=== PATIENT | female | born 1995 | race Two or more races ===

== ENCOUNTER 2019-02-10 19:07 | Emergency (ER) | payer MEDICAID ==
[2019-02-10 21:45] VITALS: BP 141/72
== END 2019-02-10 22:52 | disposition home or self-care (01) ==
LOC: ER 19:07
DX: S13.9XXA Sprain of joints and ligaments of unspecified parts of neck, initial encounter (principal); S43.401A Unspecified sprain of right shoulder joint, initial encounter; R51 Headache; V43.52XA Car driver injured in collision with other type car in traffic accident, initial encounter; Y93.89 Activity, other specified; Y92.488 Other paved roadways as the place of occurrence of the external cause; Y99.8 Other external cause status
CPT/HCPCS: 70450; 72125; 73200

== ENCOUNTER 2020-01-11 11:42 | Emergency (ER) | payer MEDICAID ==
[~2020-01-11] VITALS: Ht 162.6 cm; Wt 115.2 kg
[2020-01-11 12:39] VITALS: BP 129/74
[2020-01-11] MEDS ORDERED: METHOCARBAMOL 500 MG TAB PO ONE (14:30)
[2020-01-11] MEDS ORDERED: KETOROLAC TROMETH 60MG/2ML VIAL IM ONE (14:30)
== END 2020-01-11 15:17 | disposition home or self-care (01) ==
LOC: ER 11:42
DX: S91.312A Laceration without foreign body, left foot, initial encounter (principal); R51 Headache; M54.5 Low back pain; M54.6 Pain in thoracic spine; M54.2 Cervicalgia; R07.2 Precordial pain; V89.2XXA Person injured in unspecified motor-vehicle accident, traffic, initial encounter; Y93.I9 Activity, other involving external motion; Y92.89 Other specified places as the place of occurrence of the external cause; Y99.8 Other external cause status
CPT/HCPCS: 70450; 72070; 72100; 96372; 99284; J1885

== ENCOUNTER 2022-04-17 17:37 | Emergency (ER) | payer MEDICAID ==
[~2022-04-17] VITALS: Ht 162.6 cm; Wt 99.7 kg
[2022-04-17] MEDS ORDERED: OXYCODONE W/ ACETAMINOPHEN 5/325MG TABLET PO ONE (23:15)
[2022-04-17] MEDS ORDERED: TETANUS-DIPTH-ACEL PERTUSSIS 0.5ML SYR Tdap IM ONE (23:15)
[2022-04-17] MEDS ORDERED: BACITRACIN TOP OINT 1 UD PKG TOP ONE (23:15)
[2022-04-17] MEDS ORDERED: CEPHALEXIN 250 MG CAP PO ONE (23:15)
[2022-04-17] MEDS ORDERED: PERCOT PO (23:45)
[2022-04-17] MEDS ORDERED: CEPH-322 PO (23:45)
[2022-04-18 00:48] VITALS: BP 115/74
== END 2022-04-18 00:52 | disposition home or self-care (01) ==
LOC: ER 17:37
DX: T24.202A Burn of second degree of unspecified site of left lower limb, except ankle and foot, initial encounter (principal); T31.0 Burns involving less than 10% of body surface; Y27.8XXA Contact with other hot objects, undetermined intent, initial encounter; Y93.89 Activity, other specified; Y92.89 Other specified places as the place of occurrence of the external cause; Y99.8 Other external cause status
CPT/HCPCS: 90471; 90715; 96372

== ENCOUNTER 2022-07-06 21:45 | Emergency (ER) | payer MEDICAID ==
[~2022-07-06] VITALS: Ht 162.6 cm; Wt 101.1 kg
[~2022-07-06 21:45] MED LIST: CEPH-322 PO; PERCOT PO
[2022-07-07 01:35] VITALS: BP 116/66
[2022-07-07 02:26] LABS: Basophils # (auto) 0 10 ^3/uL (0-0.2); Basophils % (auto) 0.3 % (0.0-2.0); Eosinophils # (auto) 0.4 10 ^3/uL (0-0.8); Eosinophils % (auto) 4.3 % (0.0-7.0); Hematocrit 40.1 % (36.0-46.0); Hemoglobin 13.5 g/dL (12.2-16.2); Lymphocytes # (auto) 3.1 10 ^3/uL (0.4-5.4); Lymphocytes % (auto) 35.3 % (10.0-50.0); Mean Corpuscular Hemoglobin 30.1 pg (28.0-32.0); Mean Corpuscular Hgb Conc. 33.7 g/dL (32.0-36.0); Mean Corpuscular Volume 89.4 fL (80.0-100.0); Monocytes # (auto) 0.8 10 ^3/uL (0-1.3); Monocytes % (auto) 8.6 % (0.0-12.0); Neutrophils # (auto) 4.6 10 ^3/uL (1.6-8.6); Neutrophils % (auto) 51.5 % (37.0-80.0); Nucleated Red Blood Cells % 0.1 %; Red Blood Cells 4.48 10^6/uL (4.0-5.20); Red Cell Distribution Width 13.3 % (11.8-14.3); White Blood Cell 8.8 10^3/uL (4.4-10.8)
[2022-07-07 02:42] LABS: Albumin 3.5 g/dL (3.4-5.0); Calcium 8.7 mg/dL (8.5-10.1); Potassium 3.9 mmol/L (3.5-5.1)
[2022-07-07 02:45] LABS: BUN/Creatinine Ratio 25.7; Bilirubin, Total 0.2 mg/dL (0.2-1.0)
[2022-07-07] MEDS ORDERED: KETOROLAC TROMETH 60MG/2ML VIAL IM ONE (03:00)
== END 2022-07-07 03:08 | disposition home or self-care (01) ==
LOC: ER 21:45
DX: L40.9 Psoriasis, unspecified (principal); Q81.8 Other epidermolysis bullosa; F12.90 Cannabis use, unspecified, uncomplicated
CPT/HCPCS: 36415; 80053; 85025; 96372; 99283; J1885